=== PATIENT | male | born 1945 | race Caucasian/White ===

== ENCOUNTER 2018-02-11 07:36 | Day surgery (SDC) | payer OTHER ==
[2018-02-03 15:47] VITALS: BMI 22.5
[2018-02-11] MEDS ORDERED: PROPOFOL 20 ML ONE ×2 (07:48)
[2018-02-11 08:08] VITALS: TEMP 98
[2018-02-11 10:33] VITALS: BP 120/60; PULSE 44
--- NOTE | 2018-02-13 16:23 | PATH ---
Surgical Pathology Report Patient Name: RODOLFO WALTERS [facility]. Rec. #: [id number] /Age/Gender: 1945 (Age: 72) / M Account: [id number] Location: [facility] Taken: 02/11/2018 Received: 02/11/2018 Reported: 02/13/2018 Physicians: Rodolfo Celeste M.D. Specimen(s) Received A: LEFT COLON B: RECTUM Clinical History History of polyps Postoperative diagnosis: Polyp Final Diagnosis A. LEFT COLON POLYP, POLYPECTOMY: TUBULAR ADENOMA. B. RECTUM, BIOPSY: COLONIC MUCOSA WITH REACTIVE LYMPHOID FOLLICLES. NO HISTOLOGIC EVIDENCE OF PROCTITIS. Electronically Signed Yogesh Cardoza M.D. Gross Description A. Received in formalin labeled "left colon," is a 1.1 x 1.0 x 0.9 cm brown, polypoid portion of soft tissue. The base is inked blue and the specimen is trisected and entirely submitted in one cassette. B. Received in formalin, labeled "rectum" are 2 judd, irregular portions of soft tissue measuring 0.1 and 0.4 cm. in greatest dimension. The specimens are submitted in toto in one cassette. 02/12/201802/12/2018
== END 2018-02-11 10:35 | disposition home or self-care (01) ==
LOC: FASU-ENDO 07:36
PROVIDERS: ATTEND Internal Medicine Gastroenterology
PROC: 0DBM8ZX Excision of Descending Colon, Via Natural or Artificial Opening Endoscopic, Diagnostic (ICD-10-PCS; principal; 2018-02-11 09:12)
PROC: 0DBP8ZX Excision of Rectum, Via Natural or Artificial Opening Endoscopic, Diagnostic (ICD-10-PCS; 2018-02-11 09:12)
PROC: 0DBN8ZX Excision of Sigmoid Colon, Via Natural or Artificial Opening Endoscopic, Diagnostic (ICD-10-PCS; 2018-02-11 09:12)
DX: Z86.010 Personal history of colon polyps (principal); D12.4 Benign neoplasm of descending colon; K57.30 Diverticulosis of large intestine without perforation or abscess without bleeding; K64.8 Other hemorrhoids; K64.4 Residual hemorrhoidal skin tags; K63.89 Other specified diseases of intestine
CPT/HCPCS: 88305-TC